=== PATIENT | male | born 1965 | race African-American/Black ===

== ENCOUNTER 2017-11-05 05:44 | Emergency (ER) | payer MEDICAID ==
[~2017-11-05] VITALS: Ht 190.5 cm; Wt 96.0 kg
[~2017-11-05 05:44] MED LIST: INSLAN SQ; INSU100C3 SQ; SIMV40TA5 PO
[2017-11-05 07:18] LABS: CLARITY URINE CLEAR (CLEAR); COLOR URINE YELLOW (YELLOW); KETONES URINE NEGATIVE (NEGATIVE); LEUKOCYTE ESTERASE URINE NEGATIVE (NEGATIVE); NITRITE URINE NEGATIVE (NEGATIVE); OCCULT BLOOD URINE NEGATIVE (NEGATIVE); PH URINE >=9.0 (4.5-8.0); PROTEIN URINE NEGATIVE (NEGATIVE); UROBILINOGEN URINE 0.2 E.U./dL (0.2-1.0)
[2017-11-05 09:00] VITALS: BP 147/84
[2017-11-09 04:18] LABS: CHLAMYDIA TRACHOMATIS NAA Negative (Negative); NEISSERIA GONORRHOEAE NAA Negative (Negative)
== END 2017-11-05 09:25 | disposition home or self-care (01) ==
LOC: ER 05:44
DX: N40.1 Benign prostatic hyperplasia with lower urinary tract symptoms (principal); R35.0 Frequency of micturition; E11.9 Type 2 diabetes mellitus without complications; I10 Essential (primary) hypertension; Z98.890 Other specified postprocedural states; F12.10 Cannabis abuse, uncomplicated; Z87.891 Personal history of nicotine dependence; Z79.4 Long term (current) use of insulin
CPT/HCPCS: 81003; 87491; 87591; 99284